=== PATIENT | female | born 1995 | race American Indian/Alaskan Native ===

== ENCOUNTER 2021-03-08 19:11 | Emergency (ER) | payer MEDICAID ==
[2021-03-08 20:20] VITALS: BP 113/70
--- NOTE | 2021-03-08 20:55 | XRay Report ---
RIGHT SHOULDER 3 VIEWS INDICATION: shoulder pain. COMPARISON: No relevant prior imaging study available. FINDINGS: No acute fracture is seen. The humeral head is somewhat inferior with respect to the glenoid. Screws are noted within the glenoid. There is deformity of the humeral head could be posttraumatic. IMPRESSION: 1. Humeral head is somewhat inferior to the glenoid. This could be due to ligamentous laxity resultin g in mild subluxation. No kyle dislocation is seen. Given the screws within the glenoid, I suspect t his is a chronic finding. 2. No acute fracture. Signer Name: Aurelio Lott MD Signed: 03/08/2021 8:50 PM Workstation Name: [id number]
[2021-03-08] MEDS ORDERED: IBUPROFEN 600 MG TAB PO ONE (22:23)
[2021-03-08] MEDS ORDERED: ACETAMINOPHEN 500 MG TAB PO ONE (22:23)
--- NOTE | 2021-03-08 22:36 | Emergency Department Report ---
ED Extremity Problem HPI - General Chief complaint: Shoulder Injury Stated complaint: RIGHT SHOULDER INJURY/DISLOCATION Source: patient Mode of arrival: Ambulatory Limitations: No Limitations - History of Present Illness Initial comments: Patient is a 26-year-old -[place] female with past medical history of right shoulder fracture and s/p surgery and who presents to the ED with complaint of acute onset persistent severe right shoulder pain with tingling and numbness sensation on right arm, right fingers and right lateral neck for the last 2 weeks, worse in the last 3 days. Patient states that 2 weeks ago she had a right shoulder dislocation with moving heavy furniture and had to undergo conscious sedation at [facility] where the dislocation was reduced. Patient states that in the last 3 days, the pain has been worse as well as the tingling and numbness sensation such that she is unable to perform any active range of motion with the right shoulder. Patient denies nausea, vomiting, chest pain, shortness of breath, neck pain, head or neck injuries, back pain, change in vision, right arm weakness or numbness and tingling of lower extremities bilaterally. MD Complaint: extremity pain (right shoulder), joint paint (right shoulder) -: Sudden, week(s) (2) Location: right, upper extremity (Shoulder) History of Same: Yes (Chronic) -: Yes arthralgia (Right shoulder), No fever, No associated dyspnea, No associated chest pain Radiation: distal Severity scale (0 -10): 8 Quality: aching, sharp Consistency: constant Improves with: nothing Worsens with: weight bearing, walking, exertion, palpation Associated Symptoms: denies other symptoms, arthralgias (Right shoulder pain). denies: chest pain, shortness of breath, myalgias, rash - Related Data Previous Rx's Medication Instructions Recorded Last Taken Type Baclofen 20 mg PO Q12H PRN #30 tablet 03/08/21 Unknown Rx Ibuprofen [Motrin] 800 mg PO Q8HR PRN #30 tablet 03/08/21 Unknown Rx traMADoL [Ultram] 50 mg PO Q6HR PRN #12 tablet 03/08/21 Unknown Rx Allergies Allergy/AdvReac Type Severity Reaction Status Date / Time ketamine AdvReac Shortness Verified 03/08/21 20:17 of Breath ED Review of Systems ROS: Stated complaint: RIGHT SHOULDER INJURY/DISLOCATION Other details as noted in HPI Constitutional: denies: chills, fever Eyes: denies: eye pain, eye discharge, vision change ENT: denies: ear pain, throat pain Respiratory: denies: cough, shortness of breath, wheezing Cardiovascular: denies: chest pain, palpitations Endocrine: no symptoms reported Gastrointestinal: denies: abdominal pain, nausea, diarrhea Genitourinary: denies: urgency, dysuria, discharge Musculoskeletal: arthralgia (Right shoulder pain). denies: back pain, joint swelling Skin: denies: rash, lesions Neurological: denies: headache, weakness, paresthesias Psychiatric: denies: anxiety, depression Hematological/Lymphatic: denies: easy bleeding, easy bruising ED Past Medical Hx - Past Medical History Previous Medical History?: Yes Hx Asthma: Yes Additional medical history: endometriosis, mitral valve regurgitation - Surgical History Additional Surgical History: pins? in R shoulder - Social History Smoking Status: Never Smoker - Medications Home Medications: Home Medications Medication Instructions Recorded Confirmed Last Taken Type Baclofen 20 mg PO Q12H PRN #30 tablet 03/08/21 Unknown Rx Ibuprofen [Motrin] 800 mg PO Q8HR PRN #30 tablet 03/08/21 Unknown Rx traMADoL [Ultram] 50 mg PO Q6HR PRN #12 tablet 03/08/21 Unknown Rx ED Physical Exam - General Limitations: No Limitations General appearance: alert, in no apparent distress - Head Head exam: Present: atraumatic, normocephalic, normal inspection - Eye Eye exam: Present: normal appearance, PERRL, EOMI Pupils: Present: normal accommodation - ENT ENT exam: Present: normal exam, normal orophraynx, mucous membranes moist, TM's normal bilaterally, normal external ear exam - Neck Neck exam: Present: normal inspection, full ROM. Absent: tenderness - Respiratory Respiratory exam: Present: normal lung sounds bilaterally. Absent: respiratory distress, wheezes, rales, rhonchi, chest wall tenderness, accessory muscle use, decreased breath sounds, prolonged expiratory - Cardiovascular Cardiovascular Exam: Present: regular rate, normal rhythm, normal heart sounds. Absent: systolic murmur, diastolic murmur, rubs, gallop - GI/Abdominal GI/Abdominal exam: Present: soft, normal bowel sounds. Absent: tenderness, guarding, rebound, hyperactive bowel sounds, hypoactive bowel sounds - Extremities Exam Extremities exam: Present: normal inspection, tenderness (Palpable severe right shoulder joint tenderness and limited range of motion due to pain), normal capillary refill. Absent: full ROM (Limited range of motion of right shoulder due to pain), calf tenderness - Back Exam Back exam: Present: normal inspection, full ROM. Absent: tenderness, CVA tenderness (R), CVA tenderness (L), muscle spasm, paraspinal tenderness, vertebral tenderness - Neurological Exam Neurological exam: Present: alert, oriented X3, CN II-XII intact, normal gait, reflexes normal - Psychiatric Psychiatric exam: Present: normal affect, normal mood - Skin Skin exam: Present: warm, dry, intact, normal color. Absent: rash ED Course Vital Signs 03/08/21 20:19 Temperature 97.9 F Pulse Rate 69 Respiratory 18 Rate Blood Pressure 113/70 O2 Sat by Pulse 100 Oximetry ED Medical Decision Making - Radiology Data Radiology results: report reviewed, image reviewed [facility] [address] [place] [address] XRay Report Signed Patient: ABRAN HAMPTON MR#: [id number] 63 : 1995 Acct:[id number] Age/Sex: 26 / F ADM Date: 03/08/21 Loc: ED Attending Dr: Ordering Physician: FARZANA ZARATE MD Date of Service: 03/08/21 Procedure(s): XR shoulder 2+V RT Accession Number(s): [id number] cc: ED MD TESSA Fluoro Time In Minutes: RIGHT SHOULDER 3 VIEWS INDICATION: shoulder pain. COMPARISON: No relevant prior imaging study available. FINDINGS: No acute fracture is seen. The humeral head is somewhat inferior with respect to the glenoid. Screws are noted within the glenoid. There is deformity of the humeral head could be posttraumatic. IMPRESSION: 1. Humeral head is somewhat inferior to the glenoid. This could be due to ligamentous laxity resulting in mild subluxation. No kyle dislocation is seen. Given the screws within the glenoid, I suspect this is a chronic finding. 2. No acute fracture. Signer Name: Aurelio Lott MD Signed: 03/08/2021 8:50 PM Workstation Name: [id number] Transcribed By: ANALILIA Dictated By: Aurelio Lott MD Electronically Authenticated By: Aurelio Lott MD Signed Date/Time: 03/08/212049 DD/ 46 TD/TT: Print Cancel - Medical Decision Making This is a 26-year-old -[place] female with past medical history of right shoulder fracture and s/p surgery and who presents to the ED with complaint of acute onset persistent severe right shoulder pain with tingling and numbness sensation on right arm, right fingers and right lateral neck for the last 2 weeks, worse in the last 3 days. Patient states that 2 weeks ago she had a right shoulder dislocation with moving heavy furniture and had to undergo conscious sedation at [facility] where the dislocation was reduced. Patient states that in the last 3 days, the pain has been worse as well as the tingling and numbness sensation such that she is unable to perform any active range of motion with the right shoulder. Patient was treated for pain, and right shoulder x-ray showed humeral head is somewhat inferior to the glenoid. This could be due to ligamentous laxity resulting in mild subluxation. No kyle dislocation is seen. Given the screws within the glenoid, I suspect this is a chronic finding. There is no acute fracture. Right arm was immobilized in an arm sling and the patient wasl discharged home on pain medications. Patient was given referral to the orthopedic surgeon on-call Dr. Rashid for follow-up and advised to contact Dr. Rashid's office first thing in the morning on Sunday, March 09, 2021 to schedule a follow-up appointment. Patient is advised return to the ED immediately if symptoms get worse. - Differential Diagnosis Shoulder dislocation; shoulder fracture; shoulder sprain; Critical care attestation.: If time is entered above; I have spent that time in minutes in the direct care of this critically ill patient, excluding procedure time. ED Disposition Clinical Impression: Chronic right shoulder pain Sprain of right shoulder Qualifiers: Encounter type: initial encounter Shoulder sprain type: unspecified sprain Qualified Code(s): S43.401A - Unspecified sprain of right shoulder joint, initial encounter Disposition: TO HOME OR SELFCARE Is pt being admited?: No Does the pt Need Aspirin: No Condition: Stable Instructions: Shoulder Pain, [id number], Pain Medicine Instructions, Easy-to- Read Additional Instructions: Take medication with food, drink plenty of fluids and follow-up with your primary care physician in 7 to 10 days for reevaluation. The right shoulder x- ray showed no acute fractures or subluxations or dislocation. Therefore return to the ED immediately if symptoms get worse. Consider following up with your orthopedic surgeon Dr. Rashid in the next 24 hours for further evaluation. Prescriptions: Baclofen 20 mg PO Q12H PRN #30 tablet PRN Reason: Muscle Spasm Ibuprofen [Motrin] 800 mg PO Q8HR PRN #30 tablet PRN Reason: Pain , Severe (7-10) traMADoL [Ultram] 50 mg PO Q6HR PRN #12 tablet PRN Reason: Pain Referrals: CAMILA RASHID MD [Staff Physician] - [facility] Time of Disposition: 22:41 Print Language: LITHUANIAN
== END 2021-03-08 22:57 | disposition home or self-care (01) ==
LOC: ED 19:11
DX: S43.491A Other sprain of right shoulder joint, initial encounter (principal); G89.29 Other chronic pain; M54.2 Cervicalgia; J45.909 Unspecified asthma, uncomplicated; Z88.8 Allergy status to other drugs, medicaments and biological substances; Z79.899 Other long term (current) drug therapy; X58.XXXA Exposure to other specified factors, initial encounter; Y93.89 Activity, other specified; Y92.89 Other specified places as the place of occurrence of the external cause; Y99.8 Other external cause status
CPT/HCPCS: 99283